=== PATIENT | female | born 1955 | race American Indian/Alaskan Native ===

== ENCOUNTER 2016-07-08 12:22 | Emergency (ER) | payer SELFPAY ==
[2016-07-08 12:52] VITALS: BP 142/72
[2016-07-08] MEDS ORDERED: FLEXERIL ONE (15:57)
[2016-07-08] MEDS ORDERED: PERCOCET 5/325 ONE (15:57)
--- NOTE | 2016-07-08 16:02 | Emergency Department Report ---
HPI - General Chief Complaint: Pain General Time Seen by Provider: 07/08/16 15:26 - HPI HPI: Seen here reports that she is having pain in her neck and also in the muscles of her inner thighs. She says she has chronic neck pain from where she has herniated disc and she's had epidural and steroid injection but nothing is working. She goes to Dr. Cleaning orthopedic doctor for treatment. She denies any radiation of pain to her extremities or face. denies any complaints of vaginal pain she says she said she was having pain in her thigh area. She said her injury is a workman comp injury. She said her pain is 8 out of 10 and it's achy and throbbing. Had similar pain in the past. Patient says she took Tylenol but it didn't help. Denies any nausea vomiting or neck stiffness. Denies Any fever or chills. Denies any chest pain or shortness of breath. ED Past Medical Hx - Past Medical History Previous Medical History?: Yes Hx Arthritis: Yes - Surgical History Past Surgical History?: Yes Additional Surgical History: carpal tunnel, partial hysterectomy - Family History Family history: hypertension - Social History Smoking Status: Never Smoker Substance Use Type: None - Medications Home Medications: Home Medications Medication Instructions Recorded Confirmed Last Taken Type Cyclobenzaprine [Flexeril] 10 mg PO TID PRN #15 tablet 07/08/16 Unknown Rx traMADol [Ultram] 50 mg PO Q6HR PRN #20 tablet 07/08/16 Unknown Rx ED Review of Systems ROS: Stated complaint: NECK/GROIN PAIN/WORK INJURY Other details as noted in HPI Comment: All other systems reviewed and negative Constitutional: denies: chills, fever ENT: denies: throat pain, congestion Respiratory: no symptoms reported Cardiovascular: denies: chest pain, palpitations, edema, syncope Gastrointestinal: denies: abdominal pain, nausea, vomiting Musculoskeletal: arthralgia, myalgia. denies: back pain Skin: denies: rash Neurological: denies: headache, numbness, paresthesias, confusion, abnormal gait , vertigo Physical Exam - Physical Exam Vital Signs: Vital Signs 07/08/16 12:49 Temperature 98.3 F Pulse Rate 88 Respiratory 16 Rate Blood Pressure 142/72 O2 Sat by Pulse 100 Oximetry General: This is a 60-year-old female well-nourished well-developed in no acute distress. Physical Exam: Head: Normocephalic atraumatic Mouth: Moist, no pharyngeal exudate or erythema. Uvula is midline and oral airway is patent. No facial swelling. No peritonsillar abscesses. Neck: Supple, no C-spine tenderness, no tracheal deviation. Nontender to palpate. no adenopathy Abdomen: Soft, nontender to palpate in all quadrants, normal bowel sounds in all quadrant and negative CVA tenderness bilaterally. Back: No vertebral or paraspinal tenderness. No saddle anesthesia. Patient able to ambulate without any difficulties. Negative SLR bilaterally. Neurological: GCS of 15, alert and oriented 3. Speech is clear and fluid. Normal gait. No motor or sensory deficit. Normal reflexes. No facial drooping. No pronator drift and negative Romberg. Eyes: Bilateral pupils equal and reactive to light, bilateral EOM intact. Bilateral sclera and conjunctiva without injection. Normal accommodation. No nystagmus Lungs: Clear to auscultate bilaterally no rhonchi wheezes or rales. Normal work of breathing extremity; No CCE. +2 pulses. No neurovascular compromise. Patient with good color, sensation, temperature and movement in all extremities. MSK: Full range of motion to all extremities, no joint deformity. No effusion or crepitus joints. Cardiovascular: S1-S2, regular rate rhythm. No murmurs. Skin: clean Dry and intact no rash no lesions Psych: Normal mood and behavior ED Course Vital Signs 07/08/16 12:49 Temperature 98.3 F Pulse Rate 88 Respiratory 16 Rate Blood Pressure 142/72 O2 Sat by Pulse 100 Oximetry - Reevaluation(s) Reevaluation #1: 07/08/16 17:27 Patient received Flexeril 10 mg by mouth and Percocet 5/325 2 tablets by mouth in emergency room which relieved her pain. ED Medical Decision Making - Medical Decision Making ED course: Discussed with patient that she is having muscle pain and acute exacerbation of her chronic neck pain. I told her she will need to follow-up with Dr. Cleaning who is her orthopedic doctor to call tomorrow to schedule appointment. Patient was given cassette 5/325 2 tablets and Flexeril 10 mg by mouth. She feels better and discharged home with her family with prescription for Flexeril and Ultram. Critical care attestation.: If time is entered above; I have spent that time in minutes in the direct care of this critically ill patient, excluding procedure time. ED Disposition Clinical Impression: Musculoskeletal pain, Neck pain of over 3 months duration Disposition: DISCHARGED TO HOME OR SELFCARE Is pt being admited?: No Does the pt Need Aspirin: No Condition: Stable Instructions: Musculoskeletal Pain (ED) Additional Instructions: Pleaase do not drive or operate heavy machinery while taking Flexeril as this will cause drowsiness. Prescriptions: Cyclobenzaprine [Flexeril] 10 mg PO TID PRN #15 tablet PRN Reason: Muscle Spasm traMADol [Ultram] 50 mg PO Q6HR PRN #20 tablet PRN Reason: Pain Referrals: ANA CLEANING MD [Primary Care Provider] - 2-3 Days Forms: Work/School Release Form(ED), Accompanied Note
[2016-07-08] MEDS ORDERED: FLEXERIL PO ONE (16:03)
[2016-07-08] MEDS ORDERED: PERCOCET 5/325 PO ONE (16:03)
== END 2016-07-08 17:38 | disposition home or self-care (01) ==
LOC: ED 12:22
DX: M54.2 Cervicalgia (principal); M79.1 Myalgia; G89.29 Other chronic pain; M19.90 Unspecified osteoarthritis, unspecified site
CPT/HCPCS: 99282

== ENCOUNTER 2017-09-13 03:37 | Emergency (ER) | payer OTHER ==
[2017-09-13 03:52] VITALS: BP 115/70
[2017-09-13] MEDS ORDERED: TYLENOL PO ONE (08:09)
[2017-09-13] MEDS ORDERED: NORCO 10/325 PO ONE (08:09)
--- NOTE | 2017-09-13 08:14 | Emergency Department Report ---
ED Extremity Problem HPI - General Chief complaint: Extremity Problem,Nontraumatic Stated complaint: RT ARM PAIN Time Seen by Provider: 09/13/17 07:48 Source: patient Mode of arrival: Ambulatory Limitations: No Limitations - History of Present Illness Initial comments: 61-year-old female past medical history chronic neck pain and herniated disks bilateral shoulder chronic pain, ? Neuropathy, hypertension, COPD presents with complaint of acute on chronic neck and bilateral shoulder and right elbow pain. Patient states that she has experienced right elbow pain over the last 3 days. Denies fevers chills nausea or vomiting. Patient is fully lucid awake alert and oriented 3 and ambulatory. Accompanied by daughter at bedside. Patient denies any recent falls or direct trauma to right upper extremity. Patient visibly ranging right upper extremity without difficulty. Patient states she follows up at [place] with a surgeon by the name of Dr. Quinn and an orthopedic physician Dr. Zaman and is also [facility] for her chronic injuries/joint pain/neck pain. Patient denies any chest pain palpitations shortness of breath or associated diaphoresis. MD Complaint: extremity pain Onset/Timin -: days(s), year(s) Location: right, upper extremity History of Same: Yes Radiation: distal Severity scale (0 -10): 6 Quality: aching Consistency: constant Improves with: immobilization Worsens with: exertion Associated Symptoms: denies other symptoms - Related Data Previous Rx's Medication Instructions Recorded Last Taken Type Cyclobenzaprine [Flexeril] 10 mg PO TID PRN #15 tablet 07/08/16 Unknown Rx traMADol [Ultram] 50 mg PO Q6HR PRN #20 tablet 07/08/16 Unknown Rx Cyclobenzaprine [Flexeril] 10 mg PO TID PRN #12 tablet 09/13/17 Unknown Rx Naproxen 500 mg PO BID PRN #20 tablet 09/13/17 Unknown Rx Allergies Allergy/AdvReac Type Severity Reaction Status Date / Time No Known Allergies Allergy Verified 09/13/17 03:47 ED Review of Systems ROS: Stated complaint: RT ARM PAIN Other details as noted in HPI Constitutional: denies: chills, fever Eyes: denies: eye pain, eye discharge, vision change ENT: denies: ear pain, throat pain Respiratory: denies: cough, shortness of breath, wheezing Cardiovascular: denies: chest pain, palpitations Endocrine: no symptoms reported Gastrointestinal: denies: abdominal pain, nausea, diarrhea Genitourinary: denies: urgency, dysuria, discharge Musculoskeletal: as per HPI, arthralgia. denies: back pain, joint swelling Skin: denies: rash, lesions Neurological: denies: headache, weakness, paresthesias Psychiatric: denies: anxiety, depression Hematological/Lymphatic: denies: easy bleeding, easy bruising ED Past Medical Hx - Past Medical History Hx Arthritis: Yes Hx Asthma: Yes (bronchitis) Hx COPD: Yes - Surgical History Additional Surgical History: carpal tunnel, partial hysterectomy - Social History Smoking Status: Never Smoker Substance Use Type: None - Medications Home Medications: Home Medications Medication Instructions Recorded Confirmed Last Taken Type Cyclobenzaprine [Flexeril] 10 mg PO TID PRN #15 tablet 07/08/16 Unknown Rx traMADol [Ultram] 50 mg PO Q6HR PRN #20 tablet 07/08/16 Unknown Rx Cyclobenzaprine [Flexeril] 10 mg PO TID PRN #12 tablet 09/13/17 Unknown Rx Naproxen 500 mg PO BID PRN #20 tablet 09/13/17 Unknown Rx ED Physical Exam - General Limitations: No Limitations General appearance: alert, in no apparent distress - Head Head exam: Present: atraumatic, normocephalic - Eye Eye exam: Present: normal appearance, PERRL, EOMI - ENT ENT exam: Present: mucous membranes moist - Neck Neck exam: Present: normal inspection - Respiratory Respiratory exam: Present: normal lung sounds bilaterally. Absent: respiratory distress - Cardiovascular Cardiovascular Exam: Present: regular rate, normal rhythm. Absent: systolic murmur, diastolic murmur, rubs, gallop - GI/Abdominal GI/Abdominal exam: Present: soft, normal bowel sounds - Extremities Exam Extremities exam: Present: normal inspection - Expanded Upper Extremity Exam Right Shoulder Exam: Present: normal inspection, full ROM Upper Arm exam: Present: normal inspection, full ROM Elbow exam: Present: normal inspection, full ROM Forearm Wrist exam: Present: normal inspection, full ROM Hand Wrist exam: Present: normal inspection, full ROM Neuro motor exam: Present: wrist extension intact, thumb opposition intact, thumb IP flexion intact, thumb adduction intact, fingers 2-5 abduction intact, other Neurosensory exam: Present: radial nerve intact, ulnar nerve intact, median nerve intact Vascular: Present: normal capillary refill, radial pulse, brachial pulse, ulnar pulse - Back Exam Back exam: Present: normal inspection - Neurological Exam Neurological exam: Present: alert, oriented X3, CN II-XII intact, normal gait - Psychiatric Psychiatric exam: Present: normal affect, normal mood - Skin Skin exam: Present: warm, dry, intact, normal color. Absent: rash ED Course Vital Signs 09/13/17 03:47 Temperature 98.1 F Pulse Rate 66 Respiratory 20 Rate Blood Pressure 115/70 O2 Sat by Pulse 99 Oximetry ED Medical Decision Making - Medical Decision Making A/P: Chronic musculoskeletal pain, right elbow pain 1-patient received a prescription for tramadol on 09/07/17 as per [facility] prescription monitoring program. 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 X-ray is unremarkable. 4- vital signs stable for discharge Critical care attestation.: If time is entered above; I have spent that time in minutes in the direct care of this critically ill patient, excluding procedure time. ED Disposition Clinical Impression: Chronic musculoskeletal pain, Right elbow pain Disposition: DC-01 TO HOME OR SELFCARE Is pt being admited?: No Does the pt Need Aspirin: No Condition: Stable Instructions: Musculoskeletal Pain (ED), Arthralgia (ED) Prescriptions: Cyclobenzaprine [Flexeril] 10 mg PO TID PRN #12 tablet PRN Reason: Muscle Spasm Naproxen 500 mg PO BID PRN #20 tablet PRN Reason: Pain , Severe (7-10) Referrals: JOSE ANTONIO MALLORY [Other] - 3-5 Days Forms: Accompanied Note Time of Disposition: 09:23
--- NOTE | 2017-09-13 09:16 | XRay Report ---
RIGHT ELBOW: Pain. The bony architecture is intact without evidence of fracture or dislocation. No significant soft tissue abnormality is seen. IMPRESSION: Normal right elbow.
== END 2017-09-13 09:36 | disposition home or self-care (01) ==
LOC: ED 03:37
DX: M54.2 Cervicalgia (principal); M25.512 Pain in left shoulder; M25.511 Pain in right shoulder; M25.521 Pain in right elbow; M19.90 Unspecified osteoarthritis, unspecified site; J44.9 Chronic obstructive pulmonary disease, unspecified; Z90.710 Acquired absence of both cervix and uterus
CPT/HCPCS: 99283

== ENCOUNTER 2018-12-18 12:29 | Outpatient (CLI) | payer OTHER ==
--- NOTE | 2018-12-19 11:09 | Ultrasound Report ---
BILATERAL DIGITAL DIAGNOSTIC MAMMOGRAM WITH CAD -- 12/18/2018 RIGHT COMPLETE BREAST ULTRASOUND INDICATION: Recall to evaluate bilateral mammographic asymmetries. ABNORMAL MAMMOGRAM TECHNIQUE: Digital bilateral mammographic imaging was performed. Spot compression views were obtaine d. Complete ultrasound of all four (4) quadrants was performed. This examination was interpreted with the benefit of Computer-Aided Detection (CAD) analysis. COMPARISON: 10/31/2018 FINDINGS: Breast Density: The breasts are heterogeneously dense, which may obscure small masses. MAMMOGRAPHIC FINDINGS: Additional left mammographic views were performed and are negative. Satisfacto ry effacement of asymmetries. Additional right mammographic views were performed and demonstrate part ial effacement of asymmetry on the spot MLO view. Other views are negative. ULTRASOUND FINDINGS: Complete sonographic evaluation of all 4 quadrants and retroareolar region was p erformed. Ultrasound demonstrated a benign cyst at 6:00 near the areola measuring 3.7 mm and a cyst at 10:00 9 cm from the nipple measuring 4 x 3 x 3 mm. Ultrasound of the right axilla demonstrated sm all benign appearing lymph nodes. No suspicious lymph nodes. IMPRESSION: No suspicious findings. Negative left breast and right benign cysts. Follow up recommendation: Routine yearly BI-RADS Category 2: Benign. A "normal" or negative report should not discourage follow up or biopsy of a clinically significant f inding. A written summary of these findings will be mailed to the patient. The patient will be entered into a mammography reporting system which will generate a reminder letter for the patient's next appointmen t at the appropriate interval. According to the [employer], yearly mammograms are recommended starting at age 40 and continuing as long as a woman is in good health. Breast MRI is recommended for women with an antwan roximately 20-25% or greater lifetime risk of breast cancer, including women with a strong family his tory of breast or ovarian cancer and women who have been treated for Hodgkin's disease. Signer Name: Olayinka Bedoya MD Signed: 12/19/2018 11:05 AM Workstation Name: [id number]
== END 2018-12-18 12:30 | disposition home or self-care (01) ==
LOC: MAMMO 12:29
PROVIDERS: ATTEND Internal Medicine
DX: R92.8 Other abnormal and inconclusive findings on diagnostic imaging of breast (principal); J44.9 Chronic obstructive pulmonary disease, unspecified; M19.90 Unspecified osteoarthritis, unspecified site
CPT/HCPCS: 77066

== ENCOUNTER 2021-01-18 10:06 | Outpatient (CLI) | payer OTHER ==
--- NOTE | 2021-01-18 15:46 | Mammography Report ---
DIGITAL SCREENING MAMMOGRAM WITH CAD, 01/18/2021 CLINICAL INFORMATION / INDICATION: Routine screening mammography. Z12.31 TECHNIQUE: Digital bilateral 2D mammography was obtained in the craniocaudal and mediolateral obliqu e projections. This examination was interpreted with the benefit of Computer-Aided Detection analysis . COMPARISON: 10/31/2018 FINDINGS: Breast Density: The breasts are heterogeneously dense, which may obscure small masses. No dominant mass, suspicious calcifications, or architectural distortion in either breast. Largely unchanged nodular densities in the breasts, commonly fibroglandular or fibrocystic change. IMPRESSION: No mammographic evidence of malignancy. Follow up recommendation: Routine yearly BI-RADS Category 2: Benign. A "normal" or negative report should not discourage follow up or biopsy of a clinically significant f inding. A written summary of these findings will be mailed to the patient. The patient will be entered into a mammography reporting system which will generate a reminder letter for the patient's next appointmen t at the appropriate interval. The [employer] recommends yearly mammograms starting at age 40 and continuing as l zuhair as a woman is in good health. Breast MRI is recommended for women with an approximate 20-25% or greater lifetime risk of breast cancer, including women with a strong family history of breast or ova rhiannon cancer or who have been treated for Hodgkin's disease. Signer Name: Lm Staton MD Signed: 01/18/2021 3:41 PM Workstation Name: [id number]
== END 2021-01-18 10:07 | disposition home or self-care (01) ==
LOC: MAMMO 10:06
PROVIDERS: ATTEND Internal Medicine
DX: Z12.31 Encounter for screening mammogram for malignant neoplasm of breast (principal)
CPT/HCPCS: 77067